=== PATIENT | female | born 1975 | race African-American/Black ===

== ENCOUNTER 2016-12-20 09:03 | Emergency (ER) | payer MEDICAID ==
[2016-12-20] MEDS ORDERED: NS 1,000 ML IV ONE (09:19)
--- NOTE | 2016-12-20 09:23 | CPEKG ---
Heart Rate: 63 RR Interval: 952 P-R Interval: 156 QRSD Interval: 90 QT Interval: 456 QTC Interval: 467 P [place]: 67 QRS [place]: 8 T Wave [place]: 43 EKG Severity - NORMAL ECG - EKG Impression: SINUS RHYTHM Electronically Signed By: Clement Madrigal 22-Dec-2016 06:07:31
--- NOTE | 2016-12-20 09:23 | EDPHY ---
HPI/HX/ROS/PE/MDM Narrative: CHIEF COMPLAINT: Headache, nausea HPI: The patient is a 41 y/o female who complains of nausea, headaches, and lightheadedness. She stopped taking her Losartan prescription 2 weeks ago. For the past several weeks she has had a waxing and waning headache. Recently she has become nauseas and had difficulty walking because of the nausea and headache. Her headaches have become more severe for the last several days. Denies fever, paresthesias, chest pain or other pertinent symptoms. REVIEW OF SYSTEMS: Aside from elements discussed in the HPI, a comprehensive 10-point review of systems was reviewed and is negative. 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 ENT:Eyes are normal to inspection. ENT inspection normal. Neck: Normal inspection. Full range of motion. Respiratory:No respiratory distress. Breath sounds normal bilaterally. Cardiovascular: Regular rate and rhythm. Strong peripheral pulses. Normal cap refill. Abdomen:The abdomen is nontender to palpation. There are no peritoneal signs. There are normal bowel sounds. Back: Normal to inspection. No tenderness to palpation. Skin: Normal color. No rash. Warm and dry. Extremities: Normal appearance. Full range of motion. Neuro: Oriented x3. Normal motor function. Normal sensory function. Portions of this note were transcribed by an ED scribe. I personally performed the history, physical exam, and medical decision making; and confirm the accuracy of the information in the transcribed note. ED Course: The patient is a 41 y/o female who complains of a headache and nausea. She stopped taking her Losartan prescription 2 weeks ago. Her physical exam is normal with a current blood pressure of 183/99. EKG was ordered and interpreted by myself. Please see [facility] system for official reading. 1009: Head CT negative. 1039: Reassessed patient and discussed imaging results. 1141: Reassessed patient, her headache is now completely gone. Return precautions provided; patient is comfortable with this plan. MDM: This patient presents with headache and uncontrolled BP secondary to medication noncompliance. Thankfully, CTH is negative for bleed or CVA. Her headache has resolved. I think SAH very unlikely. There is no evidence of renal failure or other hypertensive emergency. Her BP has come down nicely without direct intervention. I think she is safe for discharge and I have encouraged her to follow-up with her PCP. - Data Points Imaging Results: Imaging Impressions Head CT 12/20/16 09:33 Impression: Negative. I telephoned results to Dr. Villa Koenig at 2208 hours. Imaging: Discussed imaging studies w/ call center receptionist Radiologist, I viewed and interpreted images myself Laboratory Results: Laboratory Results 12/20/16 09:21 12/20/16 09:21 12/20/16 12/20/16 09:21 09:21 WBC 6.73 10^3/uL 10^3/uL (3.80-9.50) RBC 4.52 10^6/uL 10^6/uL (4.18-5.33) Hgb 14.1 g/dL g/dL (12.6-16.3) Hct 42.4 % % (38.0-47.0) MCV 93.8 fL fL (81.5-99.8) MCH 31.2 pg pg (27.9-34.1) MCHC 33.3 g/dL g/dL (32.4-36.7) RDW 13.2 % % (11.5-15.2) Plt Count 524 10^3/uL H 10^3/uL (150-400) MPV 9.2 fL fL (8.7-11.7) Neut % (Auto) 46.5 % % (39.3-74.2) Lymph % (Auto) 42.6 % % (15.0-45.0) [place] % (Auto) 8.5 % % (4.5-13.0) Eos % (Auto) 1.2 % % (0.6-7.6) Baso % (Auto) 0.9 % % (0.3-1.7) Nucleat RBC Rel Count 0.0 % % (0.0-0.2) Absolute Neuts (auto) 3.13 10^3/uL 10^3/uL (1.70-6.50) Absolute Lymphs (auto) 2.87 10^3/uL 10^3/uL (1.00-3.00) Absolute Monos (auto) 0.57 10^3/uL 10^3/uL (0.30-0.80) Absolute Eos (auto) 0.08 10^3/uL 10^3/uL (0.03-0.40) Absolute Basos (auto) 0.06 10^3/uL 10^3/uL (0.02-0.10) Absolute Nucleated RBC 0.00 10^3/uL 10^3/uL (0-0.01) Immature Gran % 0.3 % % (0.0-1.1) Immature Gran # 0.02 10^3/uL 10^3/uL (0.00-0.10) Sodium 137 mEq/L mEq/L (134-144) Potassium 3.8 mEq/L mEq/L (3.5-5.2) Chloride 102 mEq/L mEq/L (97-110) Carbon Dioxide 24 mEq/l mEq/l (22-31) Anion Gap 11 mEq/L mEq/L (8-16) BUN 9 mg/dL mg/dL (7-23) Creatinine 0.9 mg/dL mg/dL (0.6-1.0) Estimated GFR > 60 Glucose 91 mg/dL mg/dL (70-100) Calcium 10.1 mg/dL mg/dL (8.5-10.4) Total Bilirubin 0.6 mg/dL mg/dL (0.1-1.4) Conjugated Bilirubin 0.3 mg/dL mg/dL (0.0-0.5) Unconjugated Bilirubin 0.3 mg/dL mg/dL (0.0-1.1) AST 25 IU/L IU/L (14-46) ALT 35 IU/L IU/L (9-52) Alkaline Phosphatase 73 IU/L IU/L (38-126) Troponin I < 0.012 ng/mL ng/mL (0.000-0.034) Total Protein 7.8 g/dL g/dL (6.3-8.2) Albumin 4.4 g/dL g/dL (3.5-5.0) Lipase 44 IU/L IU/L (23-300) Medications Given: Discontinued Medications Diphenhydramine HCl (Benadryl Injection) 25 mg IVP EDNOW ONE Stop: 12/20/16 09:34 Last Admin: 12/20/16 10:00 Dose: 25 mg Sodium Chloride (Ns) 1,000 mls @ 0 mls/hr IV EDNOW ONE; Wide Open PRN Reason: Protocol Stop: 12/20/16 09:20 Last Admin: 12/20/16 09:26 Dose: 1,000 mls Ketorolac Tromethamine (Toradol) 30 mg IVP EDNOW ONE Stop: 12/20/16 09:34 Last Admin: 12/20/16 10:00 Dose: 30 mg Metoclopramide HCl (Reglan Injection) 10 mg IVP EDNOW ONE Stop: 12/20/16 09:34 Last Admin: 12/20/16 10:00 Dose: 10 mg General Time Seen by Provider: 12/20/16 09:19 Initial Vital Signs: Initial Vital Signs Temperature (C) 36.8 C 12/20/16 09:06 Heart Rate 68 12/20/16 09:06 Respiratory Rate 16 12/20/16 09:06 Blood Pressure 192/106 H 12/20/16 09:06 O2 Sat (%) 100 12/20/16 09:06 O2 Delivery Mode Room Air Allergies/Adverse Reactions: No Known Allergies Allergy (Unverified 12/20/16 09:10) Home Medications: Medication Instructions Recorded Lisinopril 12/20/16 Losartan Potassium [Cozaar] 100 mg PO DAILY #30 tablet 12/20/16 Departure - Departure Disposition: Home, Routine, Self-Care Clinical Impression: Hypertension, Headache Condition: Good Instructions: Hypertension (ED), General Headache (ED) Additional Instructions: Follow-up with your primary doctor within 1 week for un-improved symptoms. You have been referred to Dr. Brooks if you do not have a primary care provider. Return to the Emergency Department for fever, chest pain, shortness of breath, increasing pain or other worsening of condition. Referrals: Lucretia Brooks MD [Medical Doctor] - As per Instructions Prescriptions: Losartan Potassium [Cozaar] 100 mg PO DAILY #30 tablet Report Scribed for: Villa Koenig Report Scribed by: Abida Ryder Date of Report: 12/20/16 Time of Report: 09:21
[2016-12-20 09:31] LABS: % IMMATURE GRANULYOCYTES 0.3 % (0.0-1.1); ABSOLUTE IMMATURE GRANULOCYTES 0.02 10^3/uL (0.00-0.10); ADD DIFF? NO; ADD MORPH? NO; ADD SCAN? NO; ATYPICAL LYMPHOCYTE FLAG 30 (0-99); FRAGMENT RBC FLAG 0 (0-99); HEMATOCRIT 42.4 % (38.0-47.0); HEMOGLOBIN 14.1 g/dL (12.6-16.3); LEFT SHIFT FLG 0 (0-99); LIPEMIA HEMOLYSIS FLAG 80 (0-99); MEAN CELL HEMOGLOBIN 31.2 pg (27.9-34.1); MEAN CELL HEMOGLOBIN CONCENTR. 33.3 g/dL (32.4-36.7); MEAN CELL VOLUME 93.8 fL (81.5-99.8); MEAN PLATELET VOLUME 9.2 fL (8.7-11.7); PLATELET CLUMPS FLAG 20 (0-99); PLATELET COUNT 524 10^3/uL (150-400); RED BLOOD CELL COUNT 4.52 10^6/uL (4.18-5.33); RED CELL DISTRIBUTION WIDTH 13.2 % (11.5-15.2)
[2016-12-20] MEDS ORDERED: KETOROLAC 30 MG/1 ML SDV IVP ONE (09:33)
[2016-12-20] MEDS ORDERED: METOCLOPRAMIDE 10 MG/2 ML VIAL IVP ONE (09:33)
[2016-12-20 09:43] LABS: ANION GAP 11 mEq/L (8-16); CARBON DIOXIDE 24 mEq/l (22-31); CHLORIDE 102 mEq/L (97-110); CREATININE 0.9 mg/dL (0.6-1.0); GLUCOSE 91 mg/dL (70-100); POTASSIUM 3.8 mEq/L (3.5-5.2); SODIUM 137 mEq/L (134-144)
[2016-12-20 09:44] LABS: ALANINE AMINOTRANSFERASE 35 IU/L (9-52); ALBUMIN 4.4 g/dL (3.5-5.0); ALKALINE PHOSPHATASE 73 IU/L (38-126); ASPARTATE AMINOTRANSFERASE 25 IU/L (14-46); BILIRUBIN,TOTAL 0.6 mg/dL (0.1-1.4); BILIRUBIN-CONJUGATED 0.3 mg/dL (0.0-0.5); BILIRUBIN-UNCONJUGATED 0.3 mg/dL (0.0-1.1); CALCIUM 10.1 mg/dL (8.5-10.4); GLOMERULAR FILTRATION RATE > 60; TOTAL PROTEIN 7.8 g/dL (6.3-8.2)
[2016-12-20 09:54] LABS: TROPONIN I < 0.012 ng/mL (0.000-0.034)
[2016-12-20 11:50] VITALS: BP 153/89; PULSE 76; RESP 18; TEMP 98.2; O2SAT 96
== END 2016-12-20 11:51 | disposition home or self-care (01) ==
DX: R51 Headache (principal); I10 Essential (primary) hypertension; E86.9 Volume depletion, unspecified
CPT/HCPCS: 96374; J1200; J1885; J2765

== ENCOUNTER 2017-01-30 06:45 | Emergency (ER) | payer MEDICAID ==
[2017-01-30 06:52] VITALS: BP 147/101; PULSE 75; RESP 14; TEMP 99.1; O2SAT 100
--- NOTE | 2017-01-30 07:14 | EDPHY ---
HPI/HX/ROS/PE/MDM Narrative: CHIEF COMPLAINT: Possible broken toe HISTORY OF PRESENT ILLNESS: This patient is a 42 year old female complaining of pain to her right second toe since injuring it 01/24/17, one week prior to arrival. She stubbed her toe going into a store after her birthday and has continued to experience discomfort since that time. She has not been able to walk on it normally since. She has tried ibuprofen 600mg for pain and swelling reduction, but has not taken any medications today. She denies any past injuries to the foot. She has no further complaints at this time. REVIEW OF SYSTEMS: Aside from elements discussed in the HPI, a comprehensive 10-point review of systems was reviewed and is negative. PAST MEDICAL HISTORY: Denies SOCIAL HISTORY: . Lives in [place]. Has a son. GENERAL APPEARANCE: Alert and oriented, in no apparent distress. FOCUSED EXAM OF RIGHT FOOT : Swelling and ecchymosis around PIP joint extending to DIP of second toe. Ecchymosis along plantar surface. Tender to palpation. Skin is warm and dry. Sensation intact. Good capillary refill. No abrasions. . Neurovascular exam: Good capillary refill, normal motor exam, normal neurologic exam. Portions of this note were transcribed by a medical facilities section director. I, Dr Juanita Friend , personally performed a history, physical exam, medical decision making, and confirmed the accuracy of the information in the transcribed note. ED Course: 42 year old female presents with right second toe pain ongoing for one week since stubbing it. Exam reveals swelling and ecchymosis to the right second toe. The toe is tender to palpation. Plan for x-ray of right foot. X-ray reviewed, evidence of avulsion fracture to the right second metatarsal proximal to the PIP. Reassessed patient and discussed imaging results. Plan to discharge home in good condition with orthopedic shoe, referral to podiatry. Follow up and return precautions discussed. The patient is comfortable with this plan. Procedure: Splint placement. A chary-taped toe splint was applied and the patient was given a cast shoe. MDM: Differential diagnosis for the patient's injury was considered including but not limited to contusion, abrasion, laceration, fracture, open fracture, or dislocation. - Data Points Imaging Results: Imaging Impressions Toe X-Ray 01/30/17 06:57 Impression: Mildly displaced dorsal metaphyseal base fracture of the second toe middle phalanx. Imaging: I viewed and interpreted images myself Medications Given: Discontinued Medications Ibuprofen (Motrin) 600 mg PO EDNOW ONE Stop: 01/30/17 07:22 Last Admin: 01/30/17 07:23 Dose: 600 mg General Time Seen by Provider: 01/30/17 07:03 Initial Vital Signs: Initial Vital Signs Temperature (C) 37.3 C 01/30/17 06:48 Heart Rate 75 01/30/17 06:48 Respiratory Rate 14 01/30/17 06:48 Blood Pressure 147/101 H 01/30/17 06:48 O2 Sat (%) 100 01/30/17 06:48 O2 Delivery Mode Room Air Allergies/Adverse Reactions: No Known Allergies Allergy (Unverified 12/20/16 09:10) Home Medications: Medication Instructions Recorded Lisinopril 12/20/16 Losartan Potassium [Cozaar] 100 mg PO DAILY #30 tablet 12/20/16 Departure - Departure Disposition: Home, Routine, Self-Care Clinical Impression: Fracture of toe of right foot Qualifiers: Encounter type: initial encounter Toe: lesser toe Fracture type: closed Phalanx : middle Fracture alignment: displaced Qualified Code(s): S92.521A - Displaced fracture of middle phalanx of right lesser toe(s), initial encounter for closed fracture Condition: Good Instructions: Toe Fracture (ED) Additional Instructions: Followup with the research and evaluation analyst as directed. We have referred you to our research and evaluation analyst cash on delivery clerk. Mainstay of therapy is rest, ice, immobilization, elevation, and nonsteroidal anti-inflammatories for pain and to decrease swelling. Wear your orthopedic shoe until follow up with podiatry. Apply ice for 20-30 minutes every 2-3 hours for the next 48 hours. I recommend Ibuprofen (Motrin, Advil) or Naproxen Sodium (Aleve) for pain and anti-inflammatory effects. You may take either one, but do not take both. You may also take Tylenol, 650mg every 4-6 hours as we discussed. Your dose is: Ibuprofen 600 mg every 6-8 hours with food. OR Naproxen Sodium (Aleve) 220 mg every 12 hours. Please limit walking if uncomfortable. Referrals: Jesus Krueger DPM [Doctor of Podiatric Medicine] - As per Instructions Report Scribed for: Juanita Friend Report Scribed by: Saranya Egan Date of Report: 01/30/17 Time of Report: 07:11
[2017-01-30] MEDS ORDERED: IBUPROFEN 600 MG TAB PO ONE (07:21)
== END 2017-01-30 07:45 | disposition home or self-care (01) ==
DX: S92.521A Displaced fracture of middle phalanx of right lesser toe(s), initial encounter for closed fracture (principal); W22.8XXA Striking against or struck by other objects, initial encounter; Y92.512 Supermarket, store or market as the place of occurrence of the external cause
CPT/HCPCS: L3260

== ENCOUNTER 2017-04-04 20:15 | Emergency (ER) | payer MEDICAID ==
[2017-04-04 20:24] VITALS: RESP 16; TEMP 98.4
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
[2017-04-04] MEDS ORDERED: AMPICILLIN/SULBACTAM 3 GM in NS 100 ML IV ONE (20:42)
[2017-04-04] MEDS ORDERED: HYDROCOD/APAP 5/325 PREPACK#6 BTL TAKEHOME ONE (22:32)
[2017-04-04] MEDS ORDERED: CEPHALEXIN 500MG PREPACK#4 BTL TAKEHOME ONE (22:32)
[2017-04-04 22:53] VITALS: BP 150/98; PULSE 63; O2SAT 95
== END 2017-04-04 22:52 | disposition home or self-care (01) ==
DX: S61.253A Open bite of left middle finger without damage to nail, initial encounter (principal); I10 Essential (primary) hypertension; Y04.1XXA Assault by human bite, initial encounter
CPT/HCPCS: 96365; J0295